=== PATIENT | male | born 1965 | race Caucasian/White ===

== ENCOUNTER → 2020-07-29 08:06 | Outpatient (CLI) | payer BC, SELFPAY ==
--- NOTE | 2020-07-29 | DI.US.S_ITS ---
PROCEDURE: US ABDOMEN COMPLETE INDICATIONS: unspecified cirrhosis of liver TECHNIQUE: Real-time scanning was performed of the abdominal and retroperitoneal organs, with image documentation. COMPARISON: [facility], , MR ABDOMEN LIVER PROTOCOL, 06/16/2019, 7:05. FINDINGS: Liver: The liver demonstrates normal size and demonstrates a coarse, heterogeneous appearance, with a nodular liver contour. The caudate lobe is not well seen. The main portal vein measures at the upper limits of normal at 1.5 cm. The Gallbladder: No findings of gallstones or sludge are seen. The gallbladder wall is not thickened, measuring 3 mm or less. No specific pericholecystic fluid is seen. The sonographic Gallagher sign is negative. Biliary ducts: The biliary system is not well seen. The visualized portion is not dilated. Pancreas: Not seen, obscured by overlying bowel gas. Spleen: The spleen is enlarged, measuring 15.7 x 16.1 x 7.3 cm, with a calculated volume of 965 cc. The splenic vein is prominent measuring 1 cm. Kidneys: Kidneys are normal in size and echotexture. Right kidney measures 12.8 cm long; left kidney measures 11.3 cm long. No hydronephrosis or nephrolithiasis. No solid masses. Aorta: The proximal aorta measures normal caliber. The mid and distal aorta are not well seen, secondary to overlying bowel gas. Iliacs: Not seen, obscured by overlying bowel gas. IVC: Intrahepatic inferior vena cava is patent. Miscellaneous: No free abdominal fluid. Overall exam quality is limited, secondary to bowel gas. IMPRESSION: Cirrhotic appearing liver, without focal masses or nodules seen by ultrasound. Presumed associated portal venous hypertension, with a prominent portal vein and splenic vein as well as splenomegaly. Dictated by: Griffin Saxena M.D. on 07/29/2020 at 11:27 Approved by: Griffin Saxena M.D. on 07/29/2020 at 11:30
== END ==
DX: K74.60 Unspecified cirrhosis of liver (principal); R16.1 Splenomegaly, not elsewhere classified
CPT/HCPCS: 76700